=== PATIENT | female | born 1995 ===

== ENCOUNTER 2017-09-11 10:33 | Emergency (ER) | payer OTHER ==
[2017-09-11 10:34] VITALS: BMI 17.5
--- NOTE | 2017-09-11 11:52 | ED PDOC ---
Arrival/HPI - General Chief Complaint: Flu-like Symptoms Time Seen by Provider: 09/11/17 11:49 Historian: Patient, Spouse - History of Present Illness Narrative History of Present Illness (Text): 09/11/17 11:50 This 21 yo female who denies pmh, presents to this ED c/o sore throat, chills x 1 day. Mother stated daughter had similar symptoms in the past. Patient did not have Influenza vaccine. Patient denies sob, cp, hemoptysis, recent travel, sick contact, skin rash, dizziness, or abnormal gait. Patient stated that her daughter was positive for influenza today Time/Duration: Other (see hpi) Context: Home Past Medical History - Provider Review Nursing Documentation Reviewed: Yes - Past History Past History: No Previous - Infectious Disease Hx of Infectious Diseases: None - Tetanus Immunization Tetanus Immunization: Unknown - Past Medical History Past Medical History: No Previous - Psychiatric Hx Psychophysiologic Disorder: No Hx Substance Use: No - Past Surgical History Past Surgical History: No Previous - Anesthesia Hx Anesthesia: No - Suicidal Assessment Feels Threatened In Home Enviroment: No Family/Social History - Physician Review Nursing Documentation Reviewed: Yes Family/Social History: Other (noncontributory) Smoking Status: Never Smoked Hx Alcohol Use: No Hx Substance Use: No Hx Substance Use Treatment: No Allergies/Home Meds Allergies/Adverse Reactions: Allergies No Known Allergies Allergy (Verified 09/11/17 11:04) Review of Systems - Review of Systems Constitutional: Normal. absent: Fatigue, Weight Change, Fevers Eyes: Normal ENT: Sore Throat, Rhinorrhea Respiratory: Normal. absent: SOB, Cough Cardiovascular: Normal. absent: Chest Pain, Palpitations Gastrointestinal: Normal. absent: Abdominal Pain, Nausea, Vomiting Genitourinary Female: Normal. absent: Dysuria, Frequency, Hematuria Musculoskeletal: Normal. absent: Back Pain, Neck Pain, Myalgias Skin: Normal. absent: Rash Neurological: Normal. absent: Headache, Dizziness, Focal Weakness, Gait Changes , Speech Changes, Facial Droop, Disequilibrium, Seizure Endocrine: Normal Hemo/Lymphatic: Normal Psychiatric: Normal Physical Exam Vital Signs Temp Pulse Resp BP Pulse Ox 09/11/17 14:51 99.0 F 92 H 18 120/62 100 09/11/17 11:02 98.6 F 100 H 17 118/55 L 98 Temperature: Afebrile Blood Pressure: Normal Pulse: Regular Respiratory Rate: Normal Appearance: Positive for: Well-Appearing, Non-Toxic, Comfortable Pain Distress: None Mental Status: Positive for: Alert and Oriented X 3 - Systems Exam Head: Present: Atraumatic, Normocephalic Pupils: Present: PERRL Extroacular Muscles: Present: EOMI Conjunctiva: Present: Normal Mouth: Present: Moist Mucous Membranes Neck: Present: Normal Range of Motion Respiratory/Chest: Present: Clear to Auscultation, Good Air Exchange. No: Respiratory Distress, Accessory Muscle Use Cardiovascular: Present: Regular Rate and Rhythm, Normal S1, S2. No: Murmurs Abdomen: Present: Normal Bowel Sounds. No: Tenderness, Distention, Peritoneal Signs Back: Present: Normal Inspection. No: CVA Tenderness Upper Extremity: Present: Normal Inspection, Normal ROM. No: Cyanosis, Edema Lower Extremity: Present: Normal Inspection, Normal ROM. No: Edema Neurological: Present: GCS=15, CN II-XII Intact, Speech Normal Skin: Present: Warm, Dry, Normal Color. No: Rashes Psychiatric: Present: Alert, Oriented x 3, Normal Insight, Normal Concentration Medical Decision Making ED Course and Treatment: 09/11/17 14:29 Re-evaluation. Patient feels better. Discussed results and plan with patient who expresses understanding. All questions answered and there is agreement with the plan to discharge home with instructions. Patient stable for discharge. Return if symptoms persist or worsen. Patient was recommended to see her [facility] in 1-2 days. take medication for influenza and pre-jaycob vit. To return to ED if symptoms worsen. Re-evaluation Time: 14:29 Reassessment Condition: Re-examined, Improved - Lab Interpretations Microbiology Results: Microbiology Results 09/11/17 12:47 Throat Group A Strep Throat Culture - Final NO BETA STREP GROUP A ISOLATED. Lab Results: Lab Results 09/11/17 14:10: Urine HCG, Qual Positive 09/11/17 12:47: Influenza Typ A,B (EIA) Negative for flu a/b 09/11/17 12:47: Grp A Beta Strep Ag Negative - Medication Orders Current Medication Orders: Discontinued Medications Oseltamivir Phosphate (Tamiflu Cap) 75 mg PO STAT STA PRN Reason: Protocol Stop: 09/11/17 12:53 Last Admin: 09/11/17 13:13 Dose: 75 mg Disposition/Present on Arrival - Present on Arrival Any Indicators Present on Arrival: No History of DVT/PE: No History of Uncontrolled Diabetes: No Urinary Catheter: No History of Decub. Ulcer: No History Surgical Site Infection Following: None - Disposition Have Diagnosis and Disposition been Completed?: Yes Diagnosis: Influenza-like symptoms, Disposition: HOME/ ROUTINE Disposition Time: 14:29 Patient Plan: Discharge Condition: GOOD Discharge Instructions (ExitCare): (ED), Influenza (ED) Additional Instructions: Call private doctor for follow up visit in 1-2 days. call [facility] doctor or clinic for follow up visit. Take medication as instructed. Return to emergency if symptoms worsen. Drink enough fluids, rest, and take regular strength Tylenol for fever as needed. Prescriptions: Oseltamivir [Tamiflu] 75 mg PO BID #9 cap Her815/Iron/Folic/Dha [ Formula-Dha Softgel] 1 each PO DAILY # 30 capsule Referrals: PCP,NO [Primary Care Provider] - Follow up with primary [facility] [Outside] - [facility] - Follow up with primary Forms: [employer] [email or web address]) Connect (Polish), WORK NOTE
[2017-09-11 14:57] VITALS: BP 120/62; PULSE 92; RESP 18; TEMP 99; O2SAT 100
== END 2017-09-11 14:51 | disposition home or self-care (01) ==
LOC: ED 10:33
DX: O26.899 Other specified pregnancy related conditions, unspecified trimester (principal); J11.1 Influenza due to unidentified influenza virus with other respiratory manifestations